=== PATIENT | female | born 1945 | race Caucasian/White ===

== ENCOUNTER → 2017-05-31 | Outpatient (CLI) | payer BC ==
--- NOTE | 2017-05-31 15:34 | MAMMOGRAPHY REPORT ---
BILATERAL DIGITAL SCREENING MAMMOGRAM WITH CAD: 05/31/2017 CLINICAL HISTORY: Routine screening. Patient has no complaints. TECHNIQUE: Bilateral CC and MLO views were obtained. Current study was also evaluated with a Compute r Aided Detection (CAD) system. COMPARISON: Comparison is made to exams dated: 04/09/2016 mammogram - [facility], mammogram, 06/01/2012 mammogram, and 05/15/2011 mammogram. BREAST COMPOSITION: The tissue of both breasts is heterogeneously dense, which may obscure small mas ses. FINDINGS: There are scattered benign coarse calcifications in the breasts. Stable asymmetry in the s uperior posterior right breast on the MLO view, and stable intramammary lymph node in the upper outer posterior left breast. No new suspicious mass, architectural distortion or cluster of microcalcific ations is seen. IMPRESSION: ACR BI-RADS CATEGORY 1: NEGATIVE There is no mammographic evidence of malignancy. A 1 year screening mammogram is recommended. The pa tient will receive written notification of the results. Approximately 10% of breast cancers are not detected with mammography. A negative mammographic report should not delay biopsy if a clinically suggestive mass is present. Bella Lafleur M.D. ay/:05/31/2017 15:23:55 Customer Account Representative: Kacy LOWE(R)(M), [facility] letter sent: Normal 1/2 BI-RADS Code: ACR BI-RADS Category 1: Negative
== END | disposition home or self-care (01) ==
LOC: C.MAMM 11:38
PROVIDERS: ATTEND Family Medicine
DX: Z12.31 Encounter for screening mammogram for malignant neoplasm of breast (principal)

== ENCOUNTER → 2017-06-08 | Outpatient (CLI) | payer BC | END | disposition home or self-care (01) | LOC: C.MAMM 09:39 | PROVIDERS: ATTEND Family Medicine | DX: M85.89 Other specified disorders of bone density and structure, multiple sites (principal) ==

== ENCOUNTER 2019-09-13 07:00 | Observation (INO) ==
--- NOTE | 2019-09-04 14:47 | PAT Medication Instructions ---
Medication Instructions Date of Service September 04, 2019 Home Medications acetaminophen [Tylenol Extra Strength] 500 mg PO Q6H PRN ibuprofen [Advil] 200 mg PO QID PRN letrozole 2.5 mg PO 0 pravastatin 10 mg PO Q2D Continue as directed pravastatin 10 mg PO Q2D ASK your surgeon for instructions ibuprofen [Advil] 200 mg PO QID PRN ASK your prescriber and surgeon letrozole 2.5 mg PO 1929 Take morning of surgery With a small sip of water, OTHERWISE NOTHING TO EAT OR DRINK AFTER MIDNIGHT: acetaminophen [Tylenol Extra Strength] 500 mg PO Q6H PRN (okay to take up to 4 hours prior to surgery if needed) Other Notes If you have any questions please call us at [phone] or [phone] or [phone] or [phone]
--- NOTE | 2019-09-05 10:08 | Anesthesiology Consultation ---
Date of Service September 05, 2019 Assessment & Plan (1) Encounter for pre-operative examination: - S/P Left breast lumpectomy + left sentinel node biopsy: 07/11/18: LMA#4 at [facility] Chart Review Chart Review: Acceptable Risk for Surgery and Patient seen in Pre Admission Testing Teaching & Discussion Pre-Anesthesia Teaching/Discussion Notes: Instructed NPO after midnight before surgery,except medications with 15 cc of water. Medication instructions provided according to the PAT guidelines. History Surgery Operation Date: 09/11/19 08:45 Proposed Procedures p Right Breast Lumpectomy with Needle Localization and with Right [place] Lymph Node Biopsy. - Ryan Gonzalez MD, FACS Height/Weight Height: 5 ft 1 in Weight: 60 kg Allergies Allergy/AdvReac Type Severity Reaction Status Date / Time iodine Allergy Intermediate Rash Verified 08/30/19 11:29 latex Allergy Intermediate Rash Verified 08/30/19 11:30 Penicillins Allergy Intermediate Rash Verified 08/30/19 11:29 atorvastatin [From Lipitor] AdvReac Mild Muscle Verified 09/04/19 14:46 spasms sulfamethoxazole AdvReac Unknown Disoriented/unable Verified 09/04/19 14:46 [From Bactrim] to speak trimethoprim [From Bactrim] AdvReac Unknown Disoriented/unable Verified 09/04/19 14:46 to speak Medications Home Medications Medication Instructions Recorded Confirmed Last Taken acetaminophen [Tylenol Extra 500 mg PO Q6H PRN 07/04/18 08/30/19 Unknown Strength] ibuprofen [Advil] 200 mg PO QID PRN 07/04/18 08/30/19 Unknown letrozole 2.5 mg PO 1930 08/30/19 08/30/19 Unknown pravastatin 10 mg PO Q2D 08/30/19 08/30/19 Unknown Past Medical History Medical History (Updated 09/06/19 @ 08:29 by Simona Morgan) Breast cancer (Acute) Left breast lumpectomy (06/2018) on letrozole Hyperlipidemia Skin cancer BCC Thyroid nodule small under routine surveillance Exercise / Class Metabolic Activity II 4-5 Yardwork/Stairs/Walk up hill (one flight of stairs (no chest pain/no sob)) Past Family History Family History Grandfather , in his nineties No problems noted. Grandmother , at age 85 No problems noted. Father , at age 94 Stroke No problems noted. Mother Age: 98 No problems noted. Brother Age: 72 No problems noted. Brother Age: 67 No problems noted. Sister Age: 64 No problems noted. Sister Age: 77 Parkinsons Daughter Age: 28 No problems noted. Past Surgical History Surgical History History of breast biopsy History of cataract surgery LEFT History of colonoscopy Status post breast lumpectomy (Acute) left Past Anesthesia History No Hx of Anesthesia Complications and No Family Hx of Anesthesia Complications History of PONV No Hx of PONV and No Hx of Motion Sickness Social History Smoking Status: Never smoker Do You Dip or Chew Tobacco: No Hx Alcohol Use: No Hx Substance Use: No substance use type: does not use Review of Systems Patient denies chest pain, shortness of breath, dyspnea on exertion, reflux, cough, wheezing, palpitations. Physical Exam Vital Signs VITALS BP 113/74 P 76 TEMP 98.5 SP02 97%RA RESP 18 PHYSICAL Full neck and c-spine range of motion. Full TMJ range of motion. TMD 3 finger breaths Mallampati Score 2 Dentition: intact, upper left bridge (side), crown on molar Lungs: clear throughout to auscultation Cardiac: regular rate and rhythm, I/ systolic murmur Spine: normal Carotid arteries: negative bruit Extremities: no edema Testing Laboratory Results 08/09/19 WBC 4.11 H/H 14.7/42.2 PLATELETS 161 SODIUM 135 POTASSIUM 3.7 CHLORIDE 104 CO2 24 BUN 20 CREATININE 0.86 GLUCOSE 103 Electrocardiogram Date: 09/05/19 Findings: + NSR @ (76) Chest X-Ray Date: 04/19/19 There is no pneumothorax or pleural effusion. There are surgical clips within the left breast. Lungs are clear. Cardiomediastinal silhouette is normal. No acute left rib fractures are identified.
[~2019-09-13 07:00] MED LIST: CLINDAMYCIN 900 MG / 50ML D5W IV SCH; LR 15ML/HR IV SCH
--- NOTE | 2019-09-13 11:41 | Nuclear Medicine Report ---
NM sentinel node inject only CLINICAL HISTORY: RIGHT BREAST-INJECTION ONLY COMPARISON STUDY: Breast MRI August 22, 2019. PROCEDURE: The patient presents today for right breast lymphoscintigraphy. The procedure, risks and b enefits were discussed with the patient and informed consent was obtained. The procedure was performe d by Dr. Dejesus following a timeout. Skin of the right breast was prepped and draped. A total of 0 .529 mCi of Lymphoseek was injected in 5 intradermal clips within the right periareolar distribution. The injection was performed at 11:00 AM on September 13, 2019. Patient tolerated the procedure well a nd no immediate complications were evident. No imaging was requested at this time. IMPRESSION: Right breast lymphoscintigraphy, as described above. Electronically signed by: Dakotah Dejesus M.D. 09/13/2019 11:39 AM
--- NOTE | 2019-09-13 11:55 | History & Physical Bridge Note ---
Date of Service September 13, 2019 History & Physical Bridge Note I have examined the patient, reviewed the History & Physical and in the interval since the performance of the History & Physical I have noted the following changes of clinical significance: no changes noted
[2019-09-13] MEDS ORDERED: fentaNYL citrate 100 MCG/2 ML VIAL ONE ×2 (12:00→13:13)
[2019-09-13] MEDS ORDERED: MIDAZOLAM HCL 1 MG/ML 2ML VIAL ONE (12:00)
[2019-09-13] MEDS ORDERED: BUPIVACAINE 0.5 % 5 MG/1 ML MPF 30ML VIAL ONE (12:04)
[2019-09-13] MEDS ORDERED: METHYLENE BLUE 0.5% 10 ML VIAL ONE (12:04)
[2019-09-13] MEDS ORDERED: KETOROLAC 30 MG/ML VIAL IV PRN (12:07)
[2019-09-13] MEDS ORDERED: ONDANSETRON INJ 2 MG/ML 2 ML VIAL IV PRN ×2 (12:07→14:24)
[2019-09-13] MEDS ORDERED: ATROPINE SULFATE 0.1 MG/ML 10ML SYR IV PRN (12:07)
[2019-09-13] MEDS ORDERED: fentaNYL citrate 100 MCG/2 ML VIAL IV PRN (12:07)
[2019-09-13] MEDS ORDERED: DEXAMETHASONE SOD INJ 4 MG/ML VIAL ONE (13:13)
[2019-09-13] MEDS ORDERED: ePHEDrine sulfate 50 MG/ML SYR ONE (13:13)
[2019-09-13] MEDS ORDERED: ONDANSETRON INJ 2 MG/ML 2 ML VIAL ONE (13:13)
[2019-09-13] MEDS ORDERED: PROPOFOL IV EMULSION 10 MG/ML 20 ML VIAL IV ONE (13:13)
[2019-09-13] MEDS ORDERED: LIDOCAINE HCL 2% 2 ML VIAL/AMP(20MG/ML) INFIL ONE (13:13)
[2019-09-13] MEDS ORDERED: ACETAMINOPHEN 1,000 MG/100 ML VIAL IV STA (13:31)
--- NOTE | 2019-09-13 13:31 | Post Operative Brief Note ---
PG Immediate Post Op with CF Date of Surgery September 13, 2019 Pre & Post Diagnosis Operation Date: 09/13/19 12:30 Pre-Op Diagnosis: Right Breast Lobular Carcinoma In Situ Post-Op Diagnosis: Right Breast Lobular Carcinoma In Situ I identified the patient and participated in the time-out.: Yes Procedure Operation Date: 09/13/19 12:30 Actual Procedures p Right Breast Lumpectomy with Needle Localization and with Right [place] Lymph Node Biopsy.(Right) - Ryan Gonzalez MD, FACS Surgeon Ryan Gonzalez MD, FACS Clark Driver Fredy Mulligan Estimated Blood Loss 20 Findings Consistent with Post-Op Diagnosis Specimens Specimen Description: Frozen: A. Right [place] Lymph Node Fresh: B. Right Breast Tissue. Needle Lateral, Long Silk Inferior, Short Silk Superior, Methylene Blue Medial C. Additional Right Inferior Breast Tissue. Long Silk Lateral, Short Silk Medial, Methylene Blue New Margin D. Additional Superior Right Breast Tissue. Methylene Blue New Margin
--- NOTE | 2019-09-13 13:51 | Anesthesiology Progress Note ---
Date of Service September 13, 2019 Anesthesia Post Procedure Vital Signs Vital Signs: Temp Pulse Resp BP Pulse Ox 09/13/19 08:32 36.6 C 71 18 150/75 H 96 Transfer of Care Handoff Completed per policy Notes Mental Status: alert / awake / arousable Patient Amnestic to Procedure: Yes Nausea / Vomiting: adequately controlled Pain: adequately controlled Airway Patency, RR, SpO2: stable & adequate BP & HR: stable & adequate Hydration State: stable & adequate Anesthetic Complications: no major complications apparent
--- NOTE | 2019-09-13 13:58 | Operative Report ---
DATE OF OPERATION: 09/13/2019 NAME OF OPERATION: Right lumpectomy with sentinel lymph node biopsy. PREOPERATIVE DIAGNOSIS: Lobular carcinoma in situ right breast. POSTOPERATIVE DIAGNOSIS: Lobular carcinoma in situ right breast. STAFF SURGEON: Ryan Gonzalez MD OWNER MANAGER: Tj Mulligan PA-C ANESTHESIA: General. DESCRIPTION OF PROCEDURE: The patient was brought in the operating room and placed on the operating table in supine position. Her right breast and axilla were prepped and draped in usual fashion. Using the Neoprobe, initially incision was made in the right axilla. Incisions were anesthetized using 0.5% plain Marcaine. Also, my catalog library assistant helped with prepping, draping, removal of the lymph node and breast tissue and closure of the wounds. Dissection was carried down very deep into the axilla, identifying the sentinel lymph node which was sent for frozen section which was negative. During the frozen section, lumpectomy was performed making transverse incision medial to the needle, which was lateral. Carrying dissection down around the tissue, there was significant glandular tissue. The tissue was marked with right breast tissue, needle lateral, tip of needle, medial as well as methylene blue medial, long silk inferior, short silk superior. I then took additional inferior tissue which was marked with long silk lateral, short silk medial, methylene blue new margin. Additional superior tissue was taken with methylene blue as the new margin. At this point, deep tissue and both incisions were closed using 2-0 plain suture and then the skin in the axilla closed using 4-0 nylon suture. Skin in the breast closed using subcuticular 4-0 Monocryl with Steri-Strips. Dressings applied and patient transferred to recovery room in stable condition. I attest to the content of the Intraoperative Record and any orders documented therein. Any exception s are noted below.
[2019-09-13] MEDS ORDERED: PROMETHAZINE HCL 12.5 MG in SODIUM CHLORIDE 0.9% 50 ML IV PRN (14:24)
[2019-09-13] MEDS ORDERED: MoRPHine SULFATE 4 MG/ML 1 ML CARP\\VIAL IV PRN (14:24)
[2019-09-13] MEDS ORDERED: HYDROCODONE/ACETAMOPHEN 5/325MG TAB PO PRN ×2 (14:24)
[2019-09-13] MEDS ORDERED: MoRPHine SULFATE 2 MG/ML CARP IV PRN (14:24)
[2019-09-13] MEDS ORDERED: SODIUM CHLORIDE 0.9% 1000ML 1,000 ML IV SCH (14:24)
[2019-09-13] MEDS ORDERED: IBUPROFEN 600 MG TAB PO PRN (14:24)
[2019-09-13] MEDS ORDERED: ACETAMINOPHEN 325 MG TAB PO PRN (14:24)
[2019-09-13] MEDS ORDERED: INFLUENZA Vaccine HIGH DOSE 65+yrs 0.5 mL Syr IM ONE (16:15)
--- NOTE | 2019-09-13 19:30 | Hospitalist Consultation ---
Date of Consultation September 13, 2019 Assessment & Plan (1) S/P lumpectomy of breast: - H/O Lobular Carcinoma of L Breast in the past; now with R Lobular Carcinoma in situ and S/P Lumpectomy - Continue Letrozole 2.5 mg daily - patient thinks she remembered to bring this in and may use own medication - Surgical management per primary - patient anticipates return home tomorrow (2) High cholesterol: - STABLE - Continue Pravastatin 10 mg Q2D - reports next dose would be tomorrow on 09/14 Supervising Physician Co-Signing Physician Notes Patient seen and examined with Misty Pa. I agree with her exam findings, review of systems, assessment and plan for this consultation. - s/p Lumpectomy: management per Dr. Gonzalez - Dyslipidemia: continue to take statin as prescribed will watch overnight, certainly should be stable for discharge from medical perspective in the morning History of Present Illness Reason for Consultation: Medical Management Attending Physician: Ryan Gonzalez MD, [facility] History of Present Illness Ms. Nuno is a 74 y/o female with PMHx of HLD and Lobular Carcinoma of L Breast, and Lobular Carcinoma in situ of R Breast who is S/P R Lumpectomy with [place] Lymph Node Bx on 09/13. Patient is doing well post-operatively. Denies pain at this time. Has not eaten since arriving to the floor. Only complaint is of some fatigue from surgery but otherwise well. Anticipates return home tomorrow. She states she takes pravastatin every other day and will not be due for her medication until tomorrow 09/14. She denies any known cardiac issues such as VT or CHF. She denies H/O DVT/PE. Allergies Allergy/AdvReac Type Severity Reaction Status Date / Time iodine Allergy Intermediate Rash Verified 09/13/19 08:30 latex Allergy Intermediate Rash Verified 09/13/19 08:30 Penicillins Allergy Intermediate Rash Verified 09/13/19 08:30 atorvastatin [From Lipitor] AdvReac Mild Muscle Verified 09/13/19 08:30 spasms sulfamethoxazole AdvReac Unknown Disoriented/unable Verified 09/13/19 08:30 [From Bactrim] to speak trimethoprim [From Bactrim] AdvReac Unknown Disoriented/unable Verified 09/13/19 08:30 to speak Home Medications Home Medications Medication Instructions Recorded Confirmed Type acetaminophen [Tylenol Extra 500 mg PO Q6H PRN 07/04/18 09/13/19 History Strength] ibuprofen [Advil] 200 mg PO QID PRN 07/04/18 09/13/19 History letrozole 2.5 mg PO 1930 08/30/19 09/13/19 History pravastatin 10 mg PO Q2D 08/30/19 09/13/19 History cephalexin [Keflex] 500 mg PO TID #15 cap 09/14/19 Rx hydrocodone-acetaminophen [[place]] 1 - 2 tab PO Q6H PRN #20 tab 09/14/19 Rx Patient History Family History Grandfather , in his nineties No problems noted. Grandmother , at age 85 No problems noted. Father , at age 94 Stroke No problems noted. Mother Age: 98 No problems noted. Brother Age: 72 No problems noted. Brother Age: 67 No problems noted. Sister Age: 64 No problems noted. Sister Age: 77 Parkinsons Daughter Age: 28 No problems noted. Social History Preferred Language: Swedish Communication Ability: Effective Visual Impairment: No Limitations Director Hospice Operations Required: No Beliefs That Will Affect Care: None marital status: Current Living Situation: Spouse Feels Safe at Home: Yes Smoking Status: Never smoker Second Hand Exposure: No ; Hx Alcohol Use: No Hx Substance Use: No Review of Systems Constitutional: + fatigue; no fever and no chills Eyes: no worsening vision Ear, Nose, Mouth, Throat: + dry mouth; no nasal congestion, no sore throat and no dysphagia Respiratory: no cough and no dyspnea Cardiovascular: no chest pain, no palpitations, no lightheadedness and no edema Gastrointestinal: no abdominal pain, no nausea, no vomiting, no constipation and no diarrhea/loose stools Genitourinary: no dysuria Integumentary: no rash Neurologic: no tingling and no numbness Physical Exam Constitutional: WD/WN, vitals as above Eyes: + anicteric sclerae ENMT: Ears: no hearing impairment Neck: trachea midline Respiratory: normal respiratory effort, lungs clear to auscultation Cardiovascular: RRR, no murmur, no edema Chest (Breasts): Additional Comments: dressing applied to surgical site C/D/I Gastrointestinal (Abdomen): Inspection/Auscultation: normal bowel sounds Percussion/Palpation: abdomen soft; abdomen nontender Musculoskeletal: no cyanosis or clubbing, extremities motor strength 5/5 Skin: no rashes, warm and dry Neurologic: moves all extremities Psychiatric: A+Ox3, euthymic affect Results & Data Vital Signs (Past 12 Hours) Vital Signs Temp Pulse Pulse Resp BP Pulse Ox 09/13/19 17:31 36.4 C L 104 H 16 117/67 94 09/13/19 16:43 36.1 C L 107 H 18 116/65 96 09/13/19 15:31 36.4 C L 90 16 115/60 97 09/13/19 15:02 36.4 C L 89 16 111/67 99 09/13/19 14:30 36.5 C 86 16 130/70 96 09/13/19 14:20 36.3 C L 91 H 14 130/68 97 09/13/19 14:10 94 H 17 139/71 97 09/13/19 14:00 94 H 14 130/59 L 97 09/13/19 13:50 99 H 13 131/70 100 09/13/19 13:43 36.2 C L 96 H 23 146/72 H 97 09/13/19 08:32 36.6 C 71 18 150/75 H 96 PG Care Time/CCT Total # of Minutes Spent Total Time Spent with Patient: Total time spent is greater than 50% in coordina tion of care (as documented) at patient's floor/unit and/or counseling patient:
[2019-09-13] MEDS: CEFAZOLIN 1000MG 1,000 MG/7.5 ML SYR IV SCH (20:35)
[2019-09-14] MEDS: CEFAZOLIN 1000MG 1,000 MG/7.5 ML SYR IV SCH (03:52)
[2019-09-14 04:04] VITALS: O2SAT 96
[2019-09-14 08:11] VITALS: BP 107/62; PULSE 95; TEMP 97.5
[2019-09-14] MEDS ORDERED: PRAVASTATIN SOD 10 MG TAB PO SCH (09:00)
--- NOTE | 2019-09-14 10:15 | Discharge Summary ---
DATE OF ADMISSION: 09/13/2019 DATE OF DISCHARGE: 09/14/2019 PRINCIPAL DIAGNOSIS: Lobular carcinoma in situ of the right breast. PROCEDURES: The patient underwent right breast lumpectomy with sentinel lymph node biopsy. HISTORY OF PRESENT ILLNESS: The patient is a 74-year-old female with a history of left breast lobular carcinoma and now found with LCIS of the right breast. HOSPITAL COURSE: She was brought into the hospital on 09/13/2019 where she underwent needle localization right breast lumpectomy with sentinel lymph node biopsy. She tolerated the procedure very well and has done very well overnight and is doing well this morning. No acute changes and is ready for discharge home to be followed in the surgical clinic next week.
--- NOTE | 2019-09-14 15:02 | Mammography Report ---
NEEDLE LOCALIZATION RIGHT BREAST: 09/13/2019 CLINICAL HISTORY: 74-year-old woman with recent biopsy-proven lobular carcinoma in situ in the upper outer quadrant of the right breast. Patient has a history of left breast lobular carcinoma. She prese nts for preoperative needle wire localization prior to excisional biopsy in the right breast. COMPARISON: Comparison is made to exams dated: 08/03/2019 mammogram, 08/22/2019 breast MRI, 08/03/20 stereotactic biopsy, 07/25/2019 ultrasound, 07/25/2019 mammogram, and 01/23/2019 mammogram - [facility]. PATIENT CONSENT: The risks of the procedure were explained to the patient and informed consent was ob tained both verbally and in writing. The patient denied eating or drinking anything this morning bridget t would preclude anesthesia. She denied allergy to lidocaine. She did not have to stop any blood th inners prior to surgery. Specific risks include: Bleeding, infection, puncture of adjacent structure , nontarget localization. A timeout was performed and the right breast was confirmed as a site for p reoperative localization. PROCEDURE DESCRIPTION: With the patient in the seated position, the right breast was placed in latera lmedial compression. A tomosynthesis drupal developer view was obtained which demonstrates the biopsy marker a nd subtle area of distortion within the targeting window of an alphanumeric grid. The biopsy marker and distortion was targeted. The skin of the lateral right breast was cleansed with alcohol. 1% buf fered Lidocaine without epinephrine was administered as local anesthesia. A 5cm Truong II needle and wire combination was inserted into the breast. Optimal positioning was confirmed and the wire was lo cked in place, leaving both the needle and wire within the breast, as per surgeon's preference. The entire procedure including approach and needle length were discussed with the operating surgeon prior to surgery. The patient tolerated the procedure well and there was no immediate complication. She was sent to the operating room in satisfactory condition. A surgical specimen radiograph was obtained which demonstrates the localizing needle and wire, hourgl ass shaped biopsy marker and subtle area of distortion within dense tissue in the specimen. These fi ndings are consistent with successful preoperative localization and subsequent surgical excision. Fi nal surgical pathology is pending. IMPRESSION: NEEDLE LOCALIZATION Status post right breast preoperative needle and wire localization for biopsy-proven LCIS in the uppe r outer quadrant of the right breast. The imaged specimen includes the intended abnormalities. Wendy fletcher surgical pathology is pending. Bella Lafleur M.D. ay/:09/13/2019 16:41:50 Anodiser: Rosalind Delgado, [facility]; RT Rosa,R, M, [facility]
== END 2019-09-14 11:30 | disposition home or self-care (01) ==
LOC: ASU 07:00 → 3N 07:00